=== PATIENT | female | born 1975 | race Hispanic/Latino ===

== ENCOUNTER → 2018-02-16 | Outpatient (CLI) | payer BC | END | disposition home or self-care (01) | LOC: RAH 12:59 | PROVIDERS: ATTEND Internal Medicine | DX: Z12.31 Encounter for screening mammogram for malignant neoplasm of breast (principal) | CPT/HCPCS: 77067 ==

== ENCOUNTER → 2019-02-26 | Outpatient (CLI) | payer BC | END | disposition home or self-care (01) | LOC: RAH 14:53 | PROVIDERS: ATTEND Internal Medicine | DX: Z12.31 Encounter for screening mammogram for malignant neoplasm of breast (principal) | CPT/HCPCS: 77067 ==

== ENCOUNTER → 2020-05-17 | Outpatient (CLI) | payer BC | END | disposition home or self-care (01) | LOC: RAH 12:28 | PROVIDERS: ATTEND Internal Medicine | DX: Z12.31 Encounter for screening mammogram for malignant neoplasm of breast (principal) | CPT/HCPCS: 77067 ==

== ENCOUNTER → 2022-10-15 | Outpatient (CLI) | payer BC | END | disposition home or self-care (01) | LOC: RAH 12:37 | PROVIDERS: ATTEND Internal Medicine | DX: Z12.31 Encounter for screening mammogram for malignant neoplasm of breast (principal) | CPT/HCPCS: 77067 ==

== ENCOUNTER → 2023-10-28 | Outpatient (CLI) | payer BC | END | disposition home or self-care (01) | LOC: RAH 08:52 | PROVIDERS: ATTEND Internal Medicine | DX: Z12.31 Encounter for screening mammogram for malignant neoplasm of breast (principal); R92.333 Mammographic heterogeneous density, bilateral breasts | CPT/HCPCS: 77067 ==

== ENCOUNTER → 2024-08-03 | Outpatient (CLI) | payer BC ==
--- NOTE | 2024-08-03 10:39 | HMCIMG ---
DEXA BONE DENSITY SURVEY HISTORY: Osteoporosis COMPARISON: None FINDINGS: Bone densitometry study was performed. Bone mineral density of the lumbar spine is 0.808 gram per centimeter square which corresponds to a T score of -2.2 and a Z score of -1.3. Bone mineral density of the left hip is 0.908 grams per centimeter square which corresponds to a T score of -0.4 and a Z score of 0.1. IMPRESSION: 1. Osteopenia of the lumbar spine and normal bone mineral density of left hip.
== END | disposition home or self-care (01) ==
LOC: RAH 08:45
PROVIDERS: ATTEND Internal Medicine
DX: M85.88 Other specified disorders of bone density and structure, other site (principal); M81.0 Age-related osteoporosis without current pathological fracture
CPT/HCPCS: 77080

== ENCOUNTER → 2024-08-27 | Outpatient (CLI) | payer BC ==
--- NOTE | 2024-08-27 22:46 | HMCIMG ---
US BREAST COMPLETE UNILATERAL REASON: Nipple discharge. COMPARISON: Mammogram from 10/28/2023 TECHNIQUE: Left breast ultrasound study was performed. FINDINGS: Prominent duct is seen in the retroareolar region measuring 2 mm. No evidence of cystic or hypoechoic mass is seen. There are left axillary lymph nodes measuring 10 mm and 15 mm each. Due to patient's history of nipple discharge, short-term follow-up or MRI may be helpful per referring physician request. IMPRESSION: Prominent duct in the retroareolar region. No definite focal mass is seen. CATEGORY 2: BENIGN FINDINGS Recommend monthly self breast exam as well as annual clinical examination.
== END | disposition home or self-care (01) ==
LOC: RAH 08:14
PROVIDERS: ATTEND Internal Medicine
DX: N64.52 Nipple discharge (principal); N64.89 Other specified disorders of breast; R59.0 Localized enlarged lymph nodes
CPT/HCPCS: 76641

== ENCOUNTER → 2024-10-28 | Outpatient (CLI) | payer BC ==
--- NOTE | 2024-10-28 10:44 | HMCIMG ---
[place] SCREENING BREAST, MAMMO SCREENING BILATERAL HISTORY: Screening mammogram. COMPARISON: 10/28/2023 TECHNIQUE: Bilateral screening mammogram with CAD was performed with craniocaudal and mediolateral oblique projections. FINDINGS: The breasts are heterogeneous dense, which may obscure small masses. There is no evidence of a dominant mass, or suspicious microcalcification. There is no evidence of nipple retraction or skin thickening. IMPRESSION: 1. Stable mammogram. Patient was entered into a reminder system with a target due date for their next mammogram. BI-RADS: CATEGORY 2: BENIGN FINDINGS Recommend monthly self breast exam as well as annual clinical examination. A negative x-ray should not delay biopsy if a dominant or clinically suspicious mass is present, since 8-10% of cancers are not identified by mammography. Dense breasts particularly, may obscure an underlying neoplasm. Some of these may be detected clinically and therefore, clinical examination is an essential part of breast evaluation.
== END | disposition home or self-care (01) ==
LOC: RAH 07:56
PROVIDERS: ATTEND Student in an Organized Health Care Education/Training Program
DX: Z12.31 Encounter for screening mammogram for malignant neoplasm of breast (principal); R92.333 Mammographic heterogeneous density, bilateral breasts
CPT/HCPCS: 77063; 77067